=== PATIENT | female | born 1995 | race Caucasian/White ===

== ENCOUNTER 2025-04-28 17:34 | Emergency (ER) | payer OTHER, SELFPAY ==
[2025-04-28 17:35] VITALS: BP 115/85; PULSE 92; RESP 16; TEMP 37.2; O2SAT 100; BMI 26.9
--- NOTE | 2025-04-28 17:53 | RAD_ITS ---
PROCEDURE: KNEE 4 OR MORE VIEWS 04/28/2025 REASON FOR EXAM: TRAUMA TECHNIQUE: KNEE 4 OR MORE VIEWS Laterality: FINDINGS: No evidence of acute fracture or dislocation. The joint spaces are maintained. No knee joint effusion. RAD/Knee 4 or More Views IMPRESSION: No acute osseous abnormality. Reading Location: [id number]
[2025-04-28 19:00] VITALS: BP 121/90; PULSE 88; RESP 18; O2SAT 100
--- NOTE | 2025-04-28 19:04 | EDS_ITS ---
HPI History of Present Illness Chief Complaint: Lower Extremity Injury Narrative Narrative: Patient is a 30-year-old female who has a past medical show bipolar 1 disorder, anxiety, PTSD who presents to the emergency department chief complaint left knee pain. Patient states that at work around 5 PM this evening she was attempting to help a coworker boost a patient in the bed and the bed was not locked. She states that her leg was stuck between the bed and the wall and she felt like her left knee turn in an awkward position has been painful since then. States that her work sent her here to be further evaluated. Patient states that she did not take anything for pain yet. [facility] Medical History Bipolar 1 disorder Anxiety PTSD (post-traumatic stress disorder) Medical History no medical history Home Medications ?Medication ?Instructions ?Recorded ?Last Taken ?Type NK 04/09/25 Unknown History Allergy/AdvReac Type Severity Reaction Status Date / Time aripiprazole (From Abilify) Allergy Other Verified 04/28/25 17:37 lorazepam (From Ativan) Allergy Other Verified 04/28/25 17:37 metoclopramide (From Reglan) Allergy Other Verified 04/28/25 17:37 Penicillins (PCN) Allergy Anaphylaxis Verified 04/28/25 17:37 propranolol Allergy Other Verified 04/28/25 17:37 sertraline (From Zoloft) Allergy Other Verified 04/28/25 17:37 Family History no significant family his Surgical History no surgical history Social History Smoking Status: Never smoker ROS ROS ED ROS Narrative Neurological: Denies any numbness, weakness, tingling Musculoskeletal: Complains of left knee pain as noted above Skin: Denies any rashes or lesions EXAM Physical Exam Narrative Exam Narrative: General: Patient was lying in bed rest comfortably did not appear to be acute distress Head: Atraumatic, normocephalic Eyes: PERRL bilateral, EOMI bilateral, no conjunctival injection noted Neck: Soft, supple, trachea midline Cardiovascular: Regular rate and rhythm Musculoskeletal: Patient has full range of motion of the left knee with mild pain during this, tenderness palpation over the left tibia/fibula in the left ankle region, no tenderness palpation of the left foot Extremities: DP pulses +2/4 in the bilateral lower extremities, +5/5 strength noted in the bilateral lower extremities Neurological: Patient follow commands knew that she was at [facility] years 2024 sensation grossly intact Skin: Warm, dry, tact no rashes or lesions noted Const Vital Signs: 04/28/25 17:35 04/28/25 19:00 Temperature 99.0 F Temperature Source Oral Pulse Rate 92 88 Respiratory Rate 16 18 Blood Pressure 115/85 H 121/90 H Blood Pressure Mean 95 100 Pulse Ox 100 100 Oxygen Delivery Method Room Air Room Air MDM MDM MDM Narrative Medical decision making narrative: Patient is a 30-year-old female who presents to the emergency department chief complaint of left knee pain, left ankle pain. On the differential diagnosis includes but not limited to medial collateral ligament injury, lateral collateral ligament injury, ankle sprain, ankle fracture. Once workup is obtained reviewed she will be reevaluated. Patient states that she does not want a thing for pain here she will take something at home. X-ray of the tibia/fibula reviewed and showed no acute osseous abnormalities. Patient's x-ray of her ankle reviewed by myself and by radiology showed no acute fracture or dislocation. Patient knee x-ray reviewed by myself and by radiology showed no acute fracture or dislocation. Discussed results with the patient she would like to go home at this point in time. She advised ice, elevate and rotate Tylenol and ibuprofen [id number] for pain control. She is offered crutches she states that she does not need this. She was advised that she should obtain a removable knee brace from the store. She advised return with worsening symptoms or any concerns. She is agreeable to plan all question concerns answered she was discharged home in stable condition Radiography Diagnostic Testing: Clinical Impression(s) from Imaging Studies Knee X-Ray 04/28/25 17:53 IMPRESSION: No acute osseous abnormality. Reading Location: [id number] Ankle X-Ray 04/28/25 19:10 IMPRESSION: No acute fracture or dislocation. Reading Location: [id number] Tibia/Fibula X-Ray 04/28/25 19:10 IMPRESSION: No acute osseous abnormality. Reading Location: [facility] [place] Discharge Plan Triage Chief Complaint: Lower Extremity Injury ED Provider: Stuart Hightower Dx/Rx/DC Orders Clinical Impression: Left knee sprain, Ankle pain, left, History of anxiety Prescriptions: No Action NK Primary Care Provider: Care Physician,No Primary Referrals: Care Physician,No Primary [Primary Care Provider] - Corporate,Care [Group of Physicians] - Activity Restrictions/Additional Instructions: Your x-rays did not show any acute findings. No broken bones noted. Rotate Tylenol and ibuprofen [id number] when you do this you can take submitted with 3 hours for pain max dose of Tylenol in 24 hours 4000 mg. Max dose of ibuprofen in 24 hours 3200 mg., Ice, elevate. Follow-up with corporate care. Return with worsening symptoms or any other concerns Print Language: Mauritanian Disposition Disposition: Home, Self Care
--- NOTE | 2025-04-28 19:10 | RAD_ITS ---
PROCEDURE: LEFT ANKLE MIN 3 VIEWS 04/28/2025 REASON FOR EXAM: PAIN TECHNIQUE: LEFT ANKLE MIN 3 VIEWS COMPARISON: None. FINDINGS: No acute fracture or dislocation. Alignment is anatomic. Preserved joint spaces. No aggressive osseous lesion. No marked soft tissue swelling or radiopaque foreign body. RAD/Ankle min 3 Views IMPRESSION: No acute fracture or dislocation. Reading Location: [id number]
--- NOTE | 2025-04-28 19:10 | RAD_ITS ---
CR,OT - TIBIA FIBULA 2 VIEWS 28-Apr-2025 7:10 PM CLINICAL HISTORY: Pain. COMPARISON: None. TECHNIQUE: AP and lateral views of the tibia/fibula. FINDINGS: BONES: No acute fracture or focal osseous lesion. JOINTS: No dislocation. The joint spaces are normal. SOFT TISSUES: The soft tissues are unremarkable. RAD/Tibia & Fibula 2 Views IMPRESSION: No acute osseous abnormality. Reading Location: [id number]
[2025-04-28 20:48] VITALS: BP 114/91; PULSE 84; RESP 18; TEMP 36.6; O2SAT 100
== END 2025-04-28 20:50 | disposition home or self-care (01) ==
PROVIDERS: Emergency Provider Emergency Medicine; Visit Provider Emergency Medicine
DX: S83.92XA Sprain of unspecified site of left knee, initial encounter (principal); F31.9 Bipolar disorder, unspecified; M25.572 Pain in left ankle and joints of left foot; X58.XXXA Exposure to other specified factors, initial encounter
CPT/HCPCS: 73564; 73590; 73610; 99282